=== PATIENT | male | born 1990 | race Caucasian/White ===

== ENCOUNTER 2021-06-25 21:14 | Emergency (ER) | payer OTHER ==
[2021-06-25] MEDS ORDERED: predniSONE 20 MG TAB ONE (22:20)
== END 2021-06-25 22:23 | disposition home or self-care (01) ==
LOC: ERS 21:14
DX: T78.49XA Other allergy, initial encounter (principal); I10 Essential (primary) hypertension; Z79.899 Other long term (current) drug therapy
CPT/HCPCS: 99283; J7512

== ENCOUNTER 2022-08-31 13:45 | Outpatient (CLI) | payer OTHER ==
[~2022-08-31 13:45] MED LIST: Gadobenate Dimeglumine 529 MG/1 ML (20ML VIAL) ONE
== END 2022-08-31 13:46 | disposition home or self-care (01) ==
LOC: SCSMRI 13:45
PROVIDERS: ATTEND Psychiatry & Neurology Neurology
DX: G43.019 Migraine without aura, intractable, without status migrainosus (principal); G51.31 Clonic hemifacial spasm, right
CPT/HCPCS: 70553; 74018; A9577

== ENCOUNTER 2023-01-27 12:22 | Outpatient (CLI) | payer OTHER | END 2023-01-27 12:23 | disposition home or self-care (01) | LOC: EEG 12:22 | PROVIDERS: ATTEND Psychiatry & Neurology Neurology | DX: G43.019 Migraine without aura, intractable, without status migrainosus (principal) | CPT/HCPCS: 95816; 95957 ==

== ENCOUNTER 2023-03-20 13:55 | Outpatient (CLI) | payer OTHER | END 2023-03-20 13:56 | disposition home or self-care (01) | LOC: EEG 13:55 | PROVIDERS: ATTEND Psychiatry & Neurology Neurology | DX: G43.119 Migraine with aura, intractable, without status migrainosus (principal) | CPT/HCPCS: 95816; 95957 ==